=== PATIENT | female | born 2000 | race Hispanic/Latino ===

== ENCOUNTER 2019-01-06 19:00 | Inpatient (IN) | payer OTHER ==
[~2019-01-06] VITALS: Ht 160 cm; Wt 79.4 kg
[2019-01-06] MEDS ORDERED: OXYTOCIN-LR 20 UNITS/1000 ML 1,000 ML IV SCH (19:30)
[2019-01-06 21:26] LABS: MEAN CORPUSCULAR HEMOGLOBIN 29.6 pg (27.0-33.0); MEAN CORPUSCULAR VOLUME 86.9 fL (80-100); PLATELET COUNT (AUTO) 188 K/uL (130-400); RED BLOOD CELL COUNT(AUTO) 4.37 MIL/uL (4.00-5.50); RED CELL DISTRIBUTION WIDTH 13.3 % (11.0-15.5); WHITE BLOOD COUNT (AUTO) 9.8 K/uL (4.8-10.8)
[2019-01-06 23:01] LABS: BILIRUBIN,URINE Negative (NEGATIVE); COLOR,URINE Yellow (YELLOW); GLUCOSE, URINE (UA) Negative (NEGATIVE); KETONES,URINE Negative (NEGATIVE); LEUKOCYTE ESTERASE ,URINE Small (NEGATIVE); NITRATE,URINE Negative (NEGATIVE); OCCULT BLOOD,URINE Negative (NEGATIVE); PROTEIN,URINE Negative (NEGATIVE)
[2019-01-06 23:12] LABS: APPEARANCE,URINE SLIGHTLY CLOUDY (CLEAR)
[2019-01-06 23:16] LABS: BACTERIA,URINE Rare /HPF (None Seen); RBC,URINE None Seen /HPF (0-1); SQUAMOUS EPITHELIAL CELL,UR Few /HPF (0-2); WBC,URINE 0-1 /HPF (0-1)
[2019-01-06] MEDS: LACTATED RINGERS 1000ML 1,000 ML IV PRN (23:57)
[2019-01-07] MEDS ORDERED: OXYTOCIN 10 USP UNITS/ML 20 UNIT in LACTATED RINGERS 1000ML 1,000 ML IV SCH ×2
[2019-01-07 00:23] VITALS: BP 110/68
[2019-01-07] MEDS: LACTATED RINGERS 1000ML 1,000 ML IV PRN ×3 (05:51→23:54)
[2019-01-07] MEDS: MEPERIDINE-PF 50 MG/ML SYG IVP PRN ×2 (11:54→15:26)
[2019-01-07] MEDS: PROMETHAZINE HCL 25 MG/ML 1ML AMPULE IM PRN ×2 (11:55→15:26)
[2019-01-07] MEDS: AMPICILLIN 2GM+NS 100ML 100 ML IV SCH ×2 (16:46→23:55)
[2019-01-08] MEDS ORDERED: OXYTOCIN-LR 20 UNITS/1000 ML 1,000 ML IV ONE ×3 (02:57→17:36)
[2019-01-08] MEDS: AMPICILLIN 2GM+NS 100ML 100 ML IV SCH ×2 (06:27→11:43)
[2019-01-08] MEDS: PROMETHAZINE HCL 25 MG/ML 1ML AMPULE IM PRN (07:22)
[2019-01-08] MEDS: MEPERIDINE-PF 50 MG/ML SYG IVP PRN (07:23)
[2019-01-08] MEDS ORDERED: EPHEDRINE SULFATE 50 MG/ML AMPULE IVP PRN (08:00)
[2019-01-08] MEDS ORDERED: LACTATED RINGERS 500 ML 500 ML IV PRN (08:00)
[2019-01-08] MEDS ORDERED: NALOXONE HCL 0.4 MG/1 ML ML IV PRN (08:00)
[2019-01-08] MEDS ORDERED: LIDOCAINE 2%-EPI 1:200,000 20 ML VIAL IJ ONE (09:00)
[2019-01-08 09:19] LABS: HEPATITIS Bs ANTIGEN SCREEN P Negative (Negative)
[2019-01-08] MEDS: LACTATED RINGERS 1000ML 1,000 ML IV PRN (11:43)
[2019-01-08] MEDS ORDERED: LIDOCAINE HCL 1% 20 ML VIAL ONE (14:28)
[2019-01-08] MEDS ORDERED: DIPH,PERTUSS(ACELL),TET VAC/PF 0.5 ML VIAL IM PRN (17:45)
[2019-01-08] MEDS ORDERED: MEASLES/MUMPS/RUBELLA VACCINE, LIVE 0.5 ML/VIAL SQ PRN (17:45)
[2019-01-08] MEDS ORDERED: WITCH HAZEL 1 PAD TP PRN (17:45)
[2019-01-08] MEDS ORDERED: BENZOCAINE/LANOLIN/ALOE VERA 60 ML AEROSOL TP PRN (17:45)
[2019-01-08] MEDS ORDERED: ACETAMINOPHEN 325 MG TAB PO PRN (17:45)
[2019-01-08] MEDS ORDERED: LANOLIN 30GM OINTMENT TP PRN (17:45)
[2019-01-08] MEDS ORDERED: AMMONIA 1 EA AMP IH ONE (18:13)
[2019-01-08] MEDS ORDERED: PREN-154 PO (18:37)
[2019-01-08] MEDS: IBUPROFEN 800 MG TAB PO PRN (18:57)
[2019-01-08 19:25] VITALS: BP 114/73
[2019-01-08] MEDS: DOCUSATE SODIUM 100 MG CAP PO SCH (20:59)
[2019-01-08 23:20] VITALS: BP 104/53
[2019-01-09 03:28] VITALS: BP 112/86
[2019-01-09] MEDS: IBUPROFEN 800 MG TAB PO PRN (03:28)
[2019-01-09 06:23] LABS: MEAN CORPUSCULAR HEMOGLOBIN 29.3 pg (27.0-33.0); MEAN CORPUSCULAR HGB CONC 33.3 g/dL (32.0-36.0); PLATELET COUNT (AUTO) 141 K/uL (130-400); RED BLOOD CELL COUNT(AUTO) 2.61 MIL/uL (4.00-5.50); RED CELL DISTRIBUTION WIDTH 13.5 % (11.0-15.5); WHITE BLOOD COUNT (AUTO) 17.6 K/uL (4.8-10.8)
[2019-01-09] MEDS ORDERED: SODIUM CHLORIDE 0.9% 1000ML 1,000 ML IV SCH (07:00)
[2019-01-09 07:40] VITALS: BP 102/57
[2019-01-09] MEDS: DOCUSATE SODIUM 100 MG CAP PO SCH (08:10)
--- NOTE | 2019-01-09 11:10 | NUR ---
FIRST UNIT OF PRBC COMPLETED AND PATIENT TOLERATED TRANSFUSION WELL. DENIES ANY HEADACHE, ITCHING OR SHORTNESS OF BREATHE. VITAL SIGNS REMAINED STABLE.
[2019-01-09 12:00] VITALS: BP 100/58
--- NOTE | 2019-01-09 13:10 | NUR ---
SECOND UNIT OF PRBC COMPLETED AND PATIENT TOLERATED TRANSFUSION WELL. DENIES ANY SYMPTOMS OF REACTION TO TRANSFUSION. VITAL SIGNS STABLE.
--- NOTE | 2019-01-09 14:30 | NUR ---
DISCHARGE INSTRUCTIONS GIVEN AND PATIENT VERBALIZED UNDERSTANDING INSTRUCTIONS GIVEN. SCRIPT FOR MOTRIN AND FESO4 ISSUED AND INSTRUCTED ON DOSAGE AND FREQUENCY.
[2019-01-09 16:00] VITALS: BP 117/67
--- NOTE | 2019-01-09 16:35 | NUR ---
PATIENT WAS TAKEN VIA W/C TO FAMILY VEHICLE CARRYING BABY IN ARMS. PATIENT DENIES PAIN AND HAS REMAINED STABLE AFTER BLOOD TRANSFUSION. DISCHARGED PATIENT AND BABY TO HER PARENTS.
== END 2019-01-09 16:35 | disposition home or self-care (01) | DRG 807 ==
LOC: WSH 19:00 → LDH 19:00 → WSH 01-08 18:20
PROVIDERS: ADMIT Obstetrics & Gynecology; ATTEND Obstetrics & Gynecology
PROC: 10E0XZZ Delivery of Products of Conception, External Approach (ICD-10-PCS; principal; 2019-01-08)
PROC: 0W8NXZZ Division of Female Perineum, External Approach (ICD-10-PCS; 2019-01-08)
PROC: 10907ZC Drainage of Amniotic Fluid, Therapeutic from Products of Conception, Via Natural or Artificial Opening (ICD-10-PCS; 2019-01-08)
PROC: 3E033VJ Introduction of Other Hormone into Peripheral Vein, Percutaneous Approach (ICD-10-PCS; 2019-01-08)
PROC: 3E0R3BZ Introduction of Anesthetic Agent into Spinal Canal, Percutaneous Approach (ICD-10-PCS; 2019-01-08)
PROC: 00HU33Z Insertion of Infusion Device into Spinal Canal, Percutaneous Approach (ICD-10-PCS; 2019-01-08)
PROC: 30233N1 Transfusion of Nonautologous Red Blood Cells into Peripheral Vein, Percutaneous Approach (ICD-10-PCS; 2019-01-08)
PROC: 3E0234Z Introduction of Serum, Toxoid and Vaccine into Muscle, Percutaneous Approach (ICD-10-PCS; 2019-01-08)
PROC: 3E0134Z Introduction of Serum, Toxoid and Vaccine into Subcutaneous Tissue, Percutaneous Approach (ICD-10-PCS; 2019-01-08)
DX: O80 Encounter for full-term uncomplicated delivery (principal); Z37.0 Single live birth; Z23 Encounter for immunization; Z3A.39 39 weeks gestation of pregnancy
CPT/HCPCS: 36415; 81001; 85027; 86592; 86850; 86900; 86901; 86922; 87340; A4314; A4351; G0378; J0290; J2175; J2550; J2590; J3490; J7030; J7120; P9016